=== PATIENT | female | born 1990 | race Caucasian/White ===

== ENCOUNTER 2017-07-04 02:47 | Emergency (ER) | payer MEDICAID ==
[~2017-07-04] VITALS: Ht 157.5 cm; Wt 76.0 kg
[~2017-07-04 02:47] MED LIST: BIRTH CONTROL PILL; PREN1TAB49 PO
[2017-07-04 02:51] VITALS: Ht 157.5 cm; Wt 76.0 kg
--- NOTE | 2017-07-04 02:59 | ERA ---
ER Documentation Chief Complaint Date/Time DATE: 07/04/17 TIME: 02:58 Chief Complaint left sided numbness HPI The patient is a 27-year-old female, presenting to the ER because of bilateral lower extremity numbness that began about 3 PM yesterday. She felt very anxious yesterday. She complains of left sided numbness about 2 AM. She appears very anxious but denies any history of anxiety disorder. He complains of vague headache, denies blurred vision, denies neck pain, and of left shoulder and left chest wall pain when she tried to raise her left hand above her head. She denies dyspnea, abdominal pain, vomiting, dysuria, diarrhea. She does not smoke nor drink Past medical/surgical history: None ROS All systems reviewed and are negative except as per history of present illness. Medications Home Meds Active Scripts Sulfamethoxazole/Trimethoprim* (Bactrim Ds* Tablet) 1 Each Tablet, 1 TAB PO BID , #14 TAB Prov:RAMIRO SALAZAR MD 07/04/17 Ibuprofen* (Motrin*) 600 Mg Tab, 600 MG PO Q6, #30 TAB Prov:RAMIRO SALAZAR MD 07/04/17 Reported Medications Vits W-Ca,Fe,Fa(<1MG) () 1 Tab Tablet, 1 TAB PO DAILY, #1 06/24/12 [ Control Pill] No Conflict Check 06/17/10 Allergies Allergies: Coded Allergies: No Known Allergy (Verified , 06/04/14) PMhx/Soc History of Surgery: No Anesthesia Reaction: No Hx Neurological Disorder: No Hx Respiratory Disorders: No Hx Cardiac Disorders: No Hx Psychiatric Problems: No Hx Miscellaneous Medical Probl: No Hx Alcohol Use: No Hx Substance Use: No Hx Tobacco Use: No Physical Exam Vitals Vital Signs Date Time Temp Pulse Resp B/P Pulse Ox O2 Delivery O2 Flow Rate FiO2 07/04/17 02:51 97.6 83 20 146/74 97 Physical Exam Const: No acute distress. Head: Atraumatic. Eyes: Normal Conjunctiva. ENT: Normal External Ears, Nose and Mouth. Neck: Full range of motion. No meningismus. Resp: Clear to auscultation bilaterally. Cardio: Regular rate and rhythm. Abd: Soft, non distended, normal bowel sounds, non tender. Skin: No petechiae or rashes. Back: No midline or flank tenderness. Ext: No cyanosis, or edema. Neur: Right upper, right lower extremity, left upper, left lower extremity 5/5, questionable paresthesia Psych: Very anxious Result Diagram: 07/04/1733307/04/17333 Results 24 hrs Laboratory Tests Test 07/04/17 03:23 07/04/17 03:34 Bedside Urine pH (LAB) 5.5 Bedside Urine Protein (LAB) Negative Bedside Urine Glucose (UA) Negative Bedside Urine Ketones (LAB) Negative Bedside Urine Blood Trace-lysed Bedside Urine Nitrite (LAB) Negative Bedside Urine Leukocyte Esterase (L 1+ White Blood Count 11.610^3/ul Red Blood Count 4.9510^6/ul Hemoglobin 14.1g/dl Hematocrit 42.2% Mean Corpuscular Volume 85.3fl Mean Corpuscular Hemoglobin 28.5pg Mean Corpuscular Hemoglobin Concent 33.4g/dl Red Cell Distribution Width 13.9% Platelet Count 80426^3/UL Mean Platelet Volume 11.2fl Neutrophils % 68.6% Lymphocytes % 22.8% Monocytes % 6.1% Eosinophils % 1.9% Basophils % 0.3% Nucleated Red Blood Cells % 0.0/100WBC Neutrophils # 7.910^3/ul Lymphocytes # 2.610^3/ul Monocytes # 0.710^3/ul Eosinophils # 0.210^3/ul Basophils # 0.010^3/ul Nucleated Red Blood Cells # 0.010^3/ul Prothrombin Time 13.5Sec Prothrombin Time Ratio 1.1 INR International Normalized Ratio 1.03 Activated Partial Thromboplast Time 27.6Sec D-Dimer 237.85ng/ml D-Dimer Comment Sodium Level 142mmol/L Potassium Level 3.7mmol/L Chloride Level 107mmol/L Carbon Dioxide Level 24mmol/L Anion Gap 15 Blood Urea Nitrogen 18mg/dl Creatinine 0.75mg/dl Glucose Level 96mg/dl Calcium Level 8.8mg/dl Troponin I < 0.012ng/ml Current Medications Medications (Trade) Dose Ordered Sig/Kaci Route PRN Reason Start Time Stop Time Status Last Admin Dose Admin Morphine Sulfate (morphine) 2 mg ONCE ONCE IV 07/04/17 03:30 07/04/17 03:31 DC 07/04/17 03:40 Ondansetron HCl (Zofran Inj) 4 mg ONCE STAT IV 07/04/17 03:12 07/04/17 03:16 DC 07/04/17 03:40 Procedures/MDM [place] [address] Radiology Main Line: [phone] DIAGNOSTIC IMAGING REPORT Patient: LEYDI PATTON : 1990 Age: 27 Sex: F MR #: [id number] DOS: 07/04/17311 Ordering MD: RAMIRO SALAZAR MD Location: E/R Room/Bed: PROCEDURE: XR Chest. CLINICAL INDICATION: Headache, left-sided weakness TECHNIQUE: Single frontal view of the chest was obtained COMPARISON: None FINDINGS: There is hypoinflation lungs and bibasilar atelectasis. This along with portable AP technique accentuates the size of the cardiac silhouette. The heart does not appear to be grossly enlarged. ECG leads projected over the chest. There is no definite pleural effusion or pneumothorax seen. IMPRESSION: Hypoinflation lungs and bibasilar atelectasis. Infiltrates at the lung bases are not excluded. Please see above. RPTAT: HJES .Aldair Pritchard MD, MD Date Time Electronically viewed and signed by .Aldair Pritchard MD, MD on 07/04/2017 04:49 .S/ CC: RAMIRO SALAZAR MD [place] [address] Radiology Main Line: [phone] DIAGNOSTIC IMAGING REPORT Patient: LEYDI PATTON : 1990 Age: 27 Sex: F MR #: [id number] DOS: 07/04/17311 Ordering MD: RAMIRO SALAZAR MD Location: E/R Room/Bed: PROCEDURE: CT brain without contrast. CLINICAL INDICATION: Numbness. TECHNIQUE: CT scan of the brain was performed on a multi-detector high- resolution CT scanner. Contiguous axial images were obtained from the skull base to the vertex without intravenous contrast. Coronal and sagittal reformatted images were also obtained. Images were reviewed on the PACS workstation. One or more of the following dose reduction techniques were used: - Automated exposure control. - Adjustment of the mA and/or kV according to patient size. - Use of iterative reconstruction technique. Exam CTD/vol = 44.97 mGy. Total exam DLP = 720.23 mGy-cm. COMPARISON: None. FINDINGS: The ventricles and cortical sulci are within normal limits for patient's age. There are no areas of abnormal attenuation within the brain parenchyma. There is no mass effect or midline shift. There is no intracranial hemorrhage or abnormal extra-axial collection. The calvarium is intact. There is no evidence of fracture. Visualized paranasal sinuses and mastoid air cells are clear. IMPRESSION: No acute intracranial abnormality identified. .Geoffrey Moe MD, MD Date Time Electronically viewed and signed by .Geoffrey Moe MD, on 07/04/2017 04:52 .T/ CC: RAMIRO SALAZAR MD MEDICAL MAKING DECISION: The patient is a 27-year-old female, presenting with acute anxiety attack, acute paresthesia, acute cervical radiculopathy, acute lumbar radiculopathy, acute cystitis. She was treated with morphine 2 mg IV for pain and Zofran 4 mg IV for now sent with good response The differential diagnoses considered include but are not limited to acute anxiety attack, cervical radiculopathy, lumbar radiculopathy, TIA, CVA Departure Diagnosis: Primary Impression: Paresthesia and pain of left extremity Additional Impressions: Radiculopathy of cervical region Radiculopathy of lumbar region UTI (urinary tract infection) Anxiety Condition: Good Comments She was discharge with Bactrim DS and Motrin I discussed the findings with the patient. I advised the patient to follow-up with the primary physician in about 1-2 days, sooner if needed and return if any concern. The patient's blood pressure was elevated (>120/80) but appears stable without evidence of hypertension emergency or urgency. The patient was counseled about the risks of hypertension and urged to pursue outpatient monitoring and therapy within a week with their primary care physician. RAMIRO SALAZAR MD Jul 04, 2017 02:59
[2017-07-04] MEDS ORDERED: ONDANSETRON 4 MG INJ IV STA (03:12)
[2017-07-04 03:15] LABS: URINE BLOOD (Dip) POC Trace-lysed (NEGATIVE)
[2017-07-04] MEDS ORDERED: morphine 2 MG INJ IV ONE (03:30)
[2017-07-04 04:08] LABS: ANION GAP 15 (8-16); BLOOD UREA NITROGEN 18 mg/dl (7-20); CALCIUM 8.8 mg/dl (8.4-10.2); CARBON DIOXIDE 24 mmol/L (21-31); CHLORIDE 107 mmol/L (97-110); CREATININE 0.75 mg/dl (0.44-1.00); GLUCOSE 96 mg/dl (70-220); POTASSIUM 3.7 mmol/L (3.5-5.1); SODIUM 142 mmol/L (135-144)
[2017-07-04 04:13] LABS: INR 1.03; PROTIME 13.5 Sec (12.2-14.2); PT RATIO 1.1
[2017-07-04 04:14] LABS: PARTIAL THROMBOPLASTIN TIME 27.6 Sec (25.0-35.0)
[2017-07-04 04:16] LABS: D-DIMER 237.85 ng/ml (<460)
[2017-07-04 04:21] LABS: TROPONIN-I < 0.012 ng/ml (0.00-0.12)
[2017-07-04 04:31] LABS: BASOPHILS % 0.3 % (0.0-2.0); EOSINOPHILS # 0.2 10^3/ul (0.0-0.5); EOSINOPHILS % 1.9 % (0.0-7.0); HEMATOCRIT 42.2 % (37.0-47.0); HEMOGLOBIN 14.1 g/dl (12.0-16.0); LYMPHOCYTES # 2.6 10^3/ul (0.8-2.9); LYMPHOCYTES % 22.8 % (15.0-51.0); MEAN CORPUSCULAR HEMOGLOBIN 28.5 pg (29.0-33.0); MEAN CORPUSCULAR HGB CONC 33.4 g/dl (32.0-37.0); MEAN CORPUSCULAR VOLUME 85.3 fl (82.0-101.0); MEAN PLATELET VOLUME 11.2 fl (7.4-10.4); MONOCYTE # 0.7 10^3/ul (0.3-0.9); MONOCYTES % 6.1 % (0.0-11.0); NEUTROPHIL # 7.9 10^3/ul (1.6-7.5); NEUTROPHILS % 68.6 % (39.0-77.0); PLATELET COUNT 257 10^3/UL (140-415); RED BLOOD COUNT 4.95 10^6/ul (4.20-5.40); RED CELL DISTRIBUTION WIDTH 13.9 % (11.5-14.5); WHITE BLOOD COUNT 11.6 10^3/ul (4.8-10.8)
--- NOTE | 2017-07-04 04:50 | RADRPT ---
PROCEDURE: XR Chest. CLINICAL INDICATION: Headache, left-sided weakness TECHNIQUE: Single frontal view of the chest was obtained COMPARISON: None FINDINGS: There is hypoinflation lungs and bibasilar atelectasis. This along with portable AP technique accent uates the size of the cardiac silhouette. The heart does not appear to be grossly enlarged. ECG lead s projected over the chest. There is no definite pleural effusion or pneumothorax seen. IMPRESSION: Hypoinflation lungs and bibasilar atelectasis. Infiltrates at the lung bases are not excluded. Pleas e see above. RPTAT: HJES .Aldair Pritchard MD, MD Date Time Electronically viewed and signed by .Aldair Pritchard MD, MD on 07/04/2017 04:49 .S/
--- NOTE | 2017-07-04 04:52 | RADRPT ---
PROCEDURE: CT brain without contrast. CLINICAL INDICATION: Numbness. TECHNIQUE: CT scan of the brain was performed on a multi-detector high-resolution CT scanner. Co ntiguous axial images were obtained from the skull base to the vertex without intravenous contrast. Coronal and sagittal reformatted images were also obtained. Images were reviewed on the PACS works tation. One or more of the following dose reduction techniques were used: - Automated exposure control. - Adjustment of the mA and/or kV according to patient size. - Use of iterative reconstruction technique. Exam CTD/vol = 44.97 mGy. Total exam DLP = 720.23 mGy-cm. COMPARISON: None. FINDINGS: The ventricles and cortical sulci are within normal limits for patient's age. There are no areas of abnormal attenuation within the brain parenchyma. There is no mass effect or midline shift. There is no intracranial hemorrhage or abnormal extra-axial collection. The calvarium is intact. There is no evidence of fracture. Visualized paranasal sinuses and mastoid air cells are clear. IMPRESSION: No acute intracranial abnormality identified. .Geofrfey Moe MD, MD Date Time Electronically viewed and signed by .Geoffrey Moe MD, MD on 07/04/2017 04:52 .T/
[2017-07-04] MEDS ORDERED: IBUP-1542 PO (05:01)
[2017-07-04] MEDS ORDERED: SULF1TAB31 PO (05:02)
[2017-07-04 05:32] VITALS: BP 112/64; PULSE 62; RESP 16
== END 2017-07-04 05:33 | disposition home or self-care (01) ==
LOC: E/R 02:47
DX: R20.2 Paresthesia of skin (principal); M79.605 Pain in left leg; M54.12 Radiculopathy, cervical region; M54.16 Radiculopathy, lumbar region; N39.0 Urinary tract infection, site not specified; F41.9 Anxiety disorder, unspecified; R53.1 Weakness
CPT/HCPCS: 70450; 71010; 80048; 81003; 84484; 85025; 85378; 85610; 85730; 96374; 96375; J2270; J2405; Z7502

== ENCOUNTER 2017-09-04 17:41 | Emergency (ER) | payer MEDICAID ==
[~2017-09-04] VITALS: Ht 157.5 cm; Wt 76.7 kg
[~2017-09-04 17:41] MED LIST changes: +IBUP-1542 PO; +SULF1TAB31 PO
[2017-09-04 17:47] VITALS: Ht 157.5 cm; Wt 76.7 kg
[2017-09-04 21:42] LABS: URINE BLOOD (Dip) POC 2+ (NEGATIVE)
--- NOTE | 2017-09-04 22:57 | RADRPT ---
PROCEDURE: PA and lateral chest x-ray. CLINICAL INDICATION: 27 years of age, female. Chest pain TECHNIQUE: PA and lateral views of the chest. COMPARISON: July 04, 2017 FINDINGS: Medical devices: None. Cardiomediastinal contours are normal. Lungs are clear. Negative for pleural effusion or pneumothorax. No acute bony abnormality. Additional comment: None. IMPRESSION: Negative for evidence of an acute chest process. RPTAT: HCTS Physician Jatinder Date Time Electronically viewed and signed by Physician Jatinder on 09/04/2017 22:57 CS/
--- NOTE | 2017-09-04 23:14 | RADRPT ---
PROCEDURE: XR Lumbar Spine. CLINICAL INDICATION: Back pain. TECHNIQUE: Complete lumbar spine study including AP, lateral, obliques and coned L5-S1 views was p erformed. COMPARISON: No similar studies are submitted for comparison. FINDINGS: Vertebral body stature and alignment maintained. There is no evidence of fracture or subluxation. N o destructive osseous lesions are seen. IMPRESSION: No evidence of compression fracture. RPTAT: HIKT .Chava Baires MD, MD Date Time Electronically viewed and signed by .Chava Baires MD, on 09/04/2017 23:14 .T/
--- NOTE | 2017-09-04 23:28 | ERD ---
ER Documentation Chief Complaint Chief Complaint Complains of abdominal pain x 3 days HPI Otherwise healthy 27-year-old female presenting with the chief complaints of bilateral leg numbness 2 months. Described as 3/10 constant pain. No exacerbating or alleviating factors. Has taken Tylenol and ibuprofen with minimal relief. Denies any trauma, fever, night sweats, recent weight loss, drug use, alcohol abuse, sick contacts, recent travel, or similar symptoms in the past. Denies back pain, saddle paresthesia, urinary retention, bowel or bladder incontinence. Vaccination status up-to-date. Patient has no other complaints and describes no other associated manifestations. Nursing notes have been reviewed and are consistent with history given. ROS All systems reviewed and are negative except as per history of present illness. Medications Home Meds Active Scripts Sulfamethoxazole/Trimethoprim* (Bactrim Ds* Tablet) 1 Each Tablet, 1 TAB PO BID , #14 TAB Prov:RAMIRO SALAZAR MD 07/04/17 Ibuprofen* (Motrin*) 600 Mg Tab, 600 MG PO Q6, #30 TAB Prov:RAMIRO SALAZAR MD 07/04/17 Reported Medications Vits W-Ca,Fe,Fa(<1MG) () 1 Tab Tablet, 1 TAB PO DAILY, #1 06/24/12 [ Control Pill] No Conflict Check 06/17/10 Allergies Allergies: Coded Allergies: No Known Allergy (Verified , 09/04/17) PMhx/Soc Medical and Surgical Hx: pt denies Medical Hx, pt denies Surgical Hx History of Surgery: No Anesthesia Reaction: No Hx Neurological Disorder: No Hx Respiratory Disorders: No Hx Cardiac Disorders: No Hx Psychiatric Problems: No Hx Miscellaneous Medical Probl: No Hx Alcohol Use: No Hx Substance Use: No Hx Tobacco Use: No Smoking Status: Never smoker Physical Exam Vitals Vital Signs Date Time Temp Pulse Resp B/P Pulse Ox O2 Delivery O2 Flow Rate FiO2 09/04/17 17:47 99.3 67 20 133/60 98 Physical Exam Const: Well-appearing 27-year-old female in NAD. Head: Atraumatic Eyes: Normal Conjunctiva ENT: Normal External Ears, Nose and Mouth. Neck: Full range of motion..~ No meningismus. No carotid bruits. Resp: Clear to auscultation bilaterally Cardio: Regular rate and rhythm, no murmurs. Radial, dorsalis pedis, posterior tibial pulses all 2+ bilaterally. Abd: Soft, non tender, non distended. Normal bowel sounds Skin: No ulcers or skin abnormalities on the feet. No petechiae or rashes diffusely. Back: No midline, CVA, or flank tenderness Ext: No cyanosis, or edema. Full range of motion. Neur: Decreased sensation of the toes bilaterally. Awake and alert. Ambulation WNL. Psych: Normal Mood and Affect Results 24 hrs Laboratory Tests Test 09/04/17 21:42 Bedside Urine pH (LAB) 6.0 Bedside Urine Protein (LAB) Negative Bedside Urine Glucose (UA) Negative Bedside Urine Ketones (LAB) Negative Bedside Urine Blood 2+ Bedside Urine Nitrite (LAB) Negative Bedside Urine Leukocyte Esterase (L Trace Procedures/MDM Otherwise healthy 27-year-old female presenting with a chief complaint of bilateral leg numbness 2 months. Associated pain 11/28. Tylenol and ibuprofen without relief. Physical examination was remarkable for decreased sensation with pinprick using 27-gauge needle on the toe. I spoke to my attending Dr. Butcher regarding this case. He has recommended a chest x-ray and x-ray of the lumbar spine. X-rays were unremarkable. The patient is well-appearing and in no acute distress. I have no suspicion for cauda equina, bony pathology, metastases, or other neurovascular compromise. Most likely diagnosis is bilateral leg numbness of unknown etiology. I presented the case to my new attending Dr. Mcconnell, who is agreed with the assessment and plan. I have spoke with the patient regarding their condition and future management. They have verbally responded that they understand their status and treatment plan. The patients vitals are stable, and their current condition is appropriate for discharge. The patient will be given discharge instructions with return precautions. Departure Diagnosis: Primary Impression: Bilateral leg numbness Condition: Stable Patient Instructions: Paraesthesias Referrals: [facility] Usted se kay hecho un examen mdico de control que le indica que no est en adrienne condicin que requiera tratamiento urgente en el Departamento de Emergencia. Un estudio ms profundo y el tratamiento de perez condicin pueden esperar sin ningn riesgo hasta que usted sea atendida/o en el consultorio de perez mdico o adrienne cl neris. Es responsabilidad suya arreglar adrienne enzo para el seguimiento del roberto. MANEJO DE CONDICIONES NO URGENTES EN EL FUTURO 1) Si usted tiene un mdico de atencin primaria: John debera llamar a perez mdico de atencin primaria antes de venir al departamento de emergencia. Despus de las horas de consultorio, perez doctor o perez asociado/a est disponible por telfono. El mdico o enfermero de reece en el servicio telefnico puede asesorarle por rubens medio para atender el problema, o roberto contrario se puede programar adrienne enzo. 2) Si usted no tiene un mdico de atencin primaria: Llame al mdico o clnica de referencia que aparece abajo alyssa las horas de consultorio para hacer adrienne enzo para que le vean. CLINICAS: [place] [id number] [phone] [facility]., [facility] [phone] [facility] [phone] [address] [facility] [phone] [address] [facility] [facility] [phone] [address] [facility]. [phone] [address] [facility]. [facility] YOU HAVE RECEIVED A MEDICAL SCREENING EXAM AND THE RESULTS INDICATE THAT YOU DO NOT HAVE A CONDITION THAT REQUIRES URGENT TREATMENT IN THE EMERGENCY DEPARTMENT. FURTHER EVALUATION AND TREATMENT OF YOUR CONDITION CAN WAIT UNTIL YOU ARE SEEN IN YOUR DOCTORS OFFICE WITHIN THE NEXT 1-2 DAYS. IT IS YOUR RESPONSIBILITY TO MAKE AN APPOINTMENT FOR FOLOW-UP CARE. IF YOU HAVE A PRIMARY DOCTOR --you should call your primary doctor and schedule an appointment IF YOU DO NOT HAVE A PRIMARY DOCTOR YOU CAN CALL OUR PHYSICIAN REFERRAL HOTLINE AT IF YOU CAN NOT AFFORD TO SEE A PHYSICIAN YOU CAN CHOSE FROM THE FOLLOWING [facility] [address] [facility] [address] [facility] [facility] [address] [facility] [address] [facility] [address] [facility]. [facility] [address] [facility]. [facility] YOU HAVE RECEIVED A MEDICAL SCREENING EXAM AND THE RESULTS INDICATE THAT YOU DO NOT HAVE A CONDITION THAT REQUIRES URGENT TREATMENT IN THE EMERGENCY DEPARTMENT. FURTHER EVALUATION AND TREATMENT OF YOUR CONDITION CAN WAIT UNTIL YOU ARE SEEN IN YOUR DOCTORS OFFICE WITHIN THE NEXT 1-2 DAYS. IT IS YOUR RESPONSIBILITY TO MAKE AN APPOINTMENT FOR FOLOW-UP CARE. IF YOU HAVE A PRIMARY DOCTOR --you should call your primary doctor and schedule and appointment IF YOU DO NOT HAVE A PRIMARY DOCTOR YOU CAN CALL OUR PHYSICIAN REFERRAL HOTLINE AT . IF YOU CAN NOT AFFORD TO SEE A PHYSICIAN YOU CAN CHOSE FROM THE FOLLOWING [facility], [facility] INSTITUTIONS: [facility] [address] [place] [address] [facility] [address] [place] [address] [facility] [address] [place] [address] [facility] () Usted se kay hecho un examen mdico de control que le indica que no est en adrienne condicin que requiera tratamiento urgente en el Departamento de Emergencia. Un estudio ms profundo y el tratamiento de perez condicin pueden esperar sin ningn riesgo hasta que usted sea atendida/o en el consultorio de perez mdico o adrienne cl neris. Es responsabilidad suya arreglar adrienne enzo para el seguimiento del roberto. MANEJO DE CONDICIONES NO URGENTES EN EL FUTURO 1) Si usted tiene un mdico de atencin primaria: Usted debera llamar a perez mdico de atencin primaria antes de venir al departamento de emergencia. Despus de las horas de consultorio, perez doctor o perez asociado/a est disponible por telfono. El mdico o enfermero de reece en el servicio telefnico puede asesorarle por rubens medio para atender el problema, o roberto contrario se puede programar adrienne enzo. 2) Si usted no tiene un mdico de atencin primaria: Llame al mdico o condado institucions de referencia que aparece abajo alyssa las horas de consultorio para hacer adrienne enzo para que le vean. SI USTED NO PUEDE PAGAR PARA TERENCE UN MEDICO puede ir a: [facility] [address] [place] [address] [facility] [address] [place] [address] [facility] [address] [place] [address] [facility] [address] [place], [place] [id number] Additional Instructions: Floridalma un seguimiento con perez PCP dentro de los prximos 1-3 graham para adrienne evaluaci n ms completa y adrienne posible derivacin a un especialista. Devuelva el departamento de emergencia inmediatamente si los sntomas empeoran o cambian. Si tiene alguna pregunta con respecto a los medicamentos, consulte con perez farmac utico o con nosotros antes de salir. Si se producen reacciones adversas mientras isabel piero medicamentos, suspenda el tratamiento y regrese inmediatamente al servicio de urgencias. [place] piero medicamentos segn las indicaciones y complete el curso completo del tratamiento. RAMIRO RODRIGUEZ PA-C Sep 04, 2017 23:28
[2017-09-04 23:45] VITALS: BP 115/65; PULSE 67; RESP 16; TEMP 97.9
== END 2017-09-04 23:46 | disposition home or self-care (01) ==
LOC: FTE 17:41
DX: R20.0 Anesthesia of skin (principal); R07.9 Chest pain, unspecified
CPT/HCPCS: 71020; 72100; 81003; Z7502

== ENCOUNTER 2018-02-24 16:02 | Emergency (ER) | END 2018-02-24 19:50 | disposition home or self-care (01) ==

== ENCOUNTER 2018-08-09 16:59 | Emergency (ER) | END 2018-08-09 17:59 | disposition home or self-care (01) ==

== ENCOUNTER 2018-09-11 17:20 | Emergency (ER) | END 2018-09-11 19:55 | disposition home or self-care (01) ==